=== PATIENT | male | born 1935 | race Asian ===

== ENCOUNTER 2017-02-09 09:48 | Emergency (ER) | payer OTHER ==
[~2017-02-09 09:48] MED LIST: ALLOPURINOL100 MG PO; AMLODIPINE5 M1 PO; ASPIRIN81 MG PO; CARVEDILOL25 M1 PO; COL0.6 PO; GLIPIZIDE5 M2 PO; HYDRALAZINE HCL25 MG PO; ISOSORBIDE30 M1 PO; KIONEX15 GM/60 M; LEVOTHYROXIN0.025 M2 PO; NIT0.4 SL; PREVACID30 MG PO; SIMVASTATIN20 M1 PO
[2017-02-09 09:55] VITALS: BP 42/21
[2017-02-09 10:54] LABS: CALCIUM 8.2 mg/dL (8.5-10.1); CARBON DIOXIDE 25.3 mmol/L (21-32); CHLORIDE SERUM 100 mmol/L (98-107); CREATININE SERUM 1.9 mg/dL (0.7-1.3); GLUCOSE SERUM 170 mg/dL (74-106); POTASSIUM SERUM 4.8 mmol/L (3.5-5.1); SODIUM SERUM 134 mmol/L (136-145)
[2017-02-09 11:00] LABS: BASOPHIL % 0.3 % (0-2); PLATELET COUNT 162 x10^3mcL (130-400); RED CELL DISTRIBUTION WIDTH 16.3 % (11.5-14.5)
[2017-02-09 11:00] LABS: ALBUMIN 1.8 g/dL (3.4-5.0); ALKALINE PHOSPHATASE 174 U/L (46-116); ALT/SGPT 199 U/L (16-63); AST/SGOT 606 U/L (15-37); BILIRUBIN TOTAL 0.38 mg/dL (0.20-1.00); TOTAL PROTEIN, SERUM 4.8 g/dL (6.4-8.2)
[2017-02-09 11:42] VITALS: BP 0/0
== END 2017-02-09 10:05 | disposition expired ==
LOC: ED 09:48 → DU 11:23
PROVIDERS: Emergency Medicine
DX: I46.9 Cardiac arrest, cause unspecified (principal); E11.22 Type 2 diabetes mellitus with diabetic chronic kidney disease; I13.10 Hypertensive heart and chronic kidney disease without heart failure, with stage 1 through stage 4 chronic kidney disease, or unspecified chronic kidney disease; N18.9 Chronic kidney disease, unspecified; E03.9 Hypothyroidism, unspecified; D64.9 Anemia, unspecified
CPT/HCPCS: 36600; 83880; 84439; J0171; J7030; Q0092